=== PATIENT | male | born 1965 | race Caucasian/White ===

== ENCOUNTER 2017-07-01 17:55 | Emergency (ER) | payer OTHER ==
--- NOTE | 2017-07-01 18:08 | CPEKG ---
Heart Rate: 74 RR Interval: 811 P-R Interval: 144 QRSD Interval: 108 QT Interval: 412 QTC Interval: 457 P [place]: 75 QRS [place]: 52 T Wave [place]: 37 EKG Severity - BORDERLINE ECG - EKG Impression: SINUS RHYTHM Electronically Signed By: Iker Hand 01-Jul-2017 18:39:18
--- NOTE | 2017-07-01 18:10 | EDPHY ---
H & P Stated Complaint: cp x 10days Time Seen by Provider: 07/01/17 18:00 HPI/ROS: CHIEF COMPLAINT: Chest pain HISTORY OF PRESENT ILLNESS: The patient presents to the ED with a 10 day history of left-sided reproducible chest pain. The patient denies prior history of coronary artery disease. He states he has no exertional chest pain. It is worsened with positional changes and palpation. The patient does have a history of bipolar mood disorder. He is on Depakote for this condition. He does have a history of hyperlipidemia which is not treated. The patient denies any focal numbness or weakness. He denies any complaints of fever, cough or congestion. The patient states his symptoms are currently mild in nature. REVIEW OF SYSTEMS: A comprehensive 10 point review of systems is otherwise negative aside from elements mentioned in the history of present illness. Source: Patient Exam Limitations: No limitations - Personal History Current Tetanus/Diphtheria Vaccine: Yes Tetanus Vaccine Date: unsure - Medical/Surgical History Hx Asthma: No Hx Chronic Respiratory Disease: No Hx Diabetes: No Hx Cardiac Disease: No Hx Renal Disease: No Hx Cirrhosis: No Hx Alcoholism: No Hx HIV/AIDS: No Hx Splenectomy or Spleen Trauma: No Other PMH: PSHx: R knee 1998, jaw 1994,. PMHx: bipolar, back pain, high cholesterol - Social History Smoking Status: Never smoked - Physical Exam Exam: General Appearance: Alert, no distress Eyes: Pupils equal and round no pallor or injection ENT, Mouth: Mucous membranes moist Respiratory: Tenderness to palpation left anterior chest wall, no subcutaneous emphysema, no rash noted, lungs clear to auscultation bilaterally Cardiovascular: Regular rate and rhythm Gastrointestinal: Abdomen is soft and nontender, no masses, bowel sounds normal Neurological: A&O, normal motor function, normal sensory exam, normal cranial nerves Skin: Warm and dry, no rashes Musculoskeletal: Neck is supple nontender Extremities: symmetrical, full range of motion Constitutional: Initial Vital Signs Temperature (C) 36.3 C 07/01/17 17:58 Heart Rate 74 07/01/17 17:58 Respiratory Rate 18 07/01/17 17:58 Blood Pressure 152/93 H 07/01/17 17:58 O2 Sat (%) 99 07/01/17 17:58 O2 Delivery Mode Room Air Allergies/Adverse Reactions: haloperidol [From Haldol] Allergy (Unknown, Verified 07/01/17 17:58) RESTLESS haloperidol lactate [From Haldol] Allergy (Unknown, Verified 07/01/17 17:58) RESTLESS carbamazepine [From Tegretol] Allergy (Verified 07/01/17 17:58) tetracycline [Tetracycline] Allergy (Verified 07/01/17 17:58) Home Medications: Medication Instructions Recorded Depakote 16 Medical Decision Making - Diagnostics EKG Interpretation: EKG: Complete interpretation has been separately recorded in the [employer] archive. Summary impression: Sinus rhythm, mild ST segment depression noted throughout the inferior and precordial leads Imaging Results: Imaging Impressions Chest X-Ray 07/01/17 19:02 Impression: No source for chest pain identified. ED Course/Re-evaluation: The patient presents to the ED with a several week history of nonexertional left -sided chest pain which is reproducible in nature. The patient denies any pleuritic chest pain. He denies any history of fall or trauma. The patient has no acute fracture symptoms. The patient has some nonspecific changes on his EKG however a negative troponin. My clinical suspicion for acute coronary syndrome is quite low. I do feel that he can be discharged home with instructions to take Motrin as needed for pain. The patient will be referred to our on-call ac[employer]ical tile car[employer] supervisor for consideration of a treadmill stress test for any ongoing symptoms. The patient has been advised to return to the ED for markedly worsening symptoms or other concerns. I re-evaluated the patient at 8:15 p.m.. He is comfortable with the plan and disposition Differential Diagnosis: Differential diagnosis considered includes acute coronary syndrome, costochondritis, pneumothorax, myofascial strain - Data Points Laboratory Results: Laboratory Results 07/01/17 18:07 07/01/17 18:07 07/01/17 07/01/17 18:07 18:07 WBC 5.64 10^3/uL 10^3/uL (3.80-9.50) RBC 5.21 10^6/uL 10^6/uL (4.40-6.38) Hgb 16.6 g/dL g/dL (13.7-17.5) Hct 46.7 % % (40.0-51.0) MCV 89.6 fL fL (81.5-99.8) MCH 31.9 pg pg (27.9-34.1) MCHC 35.5 g/dL g/dL (32.4-36.7) RDW 12.7 % % (11.5-15.2) Plt Count 237 10^3/uL 10^3/uL (150-400) MPV 9.6 fL fL (8.7-11.7) Neut % (Auto) 53.4 % % (39.3-74.2) Lymph % (Auto) 35.6 % % (15.0-45.0) [place] % (Auto) 6.6 % % (4.5-13.0) Eos % (Auto) 3.0 % % (0.6-7.6) Baso % (Auto) 1.2 % % (0.3-1.7) Nucleat RBC Rel Count 0.0 % % (0.0-0.2) Absolute Neuts (auto) 3.01 10^3/uL 10^3/uL (1.70-6.50) Absolute Lymphs (auto) 2.01 10^3/uL 10^3/uL (1.00-3.00) Absolute Monos (auto) 0.37 10^3/uL 10^3/uL (0.30-0.80) Absolute Eos (auto) 0.17 10^3/uL 10^3/uL (0.03-0.40) Absolute Basos (auto) 0.07 10^3/uL 10^3/uL (0.02-0.10) Absolute Nucleated RBC 0.00 10^3/uL 10^3/uL (0-0.01) Immature Gran % 0.2 % % (0.0-1.1) Immature Gran # 0.01 10^3/uL 10^3/uL (0.00-0.10) Sodium 143 mEq/L mEq/L (134-144) Potassium 4.0 mEq/L mEq/L (3.5-5.2) Chloride 100 mEq/L mEq/L (97-110) Carbon Dioxide 32 mEq/l H mEq/l (22-31) Anion Gap 11 mEq/L mEq/L (8-16) BUN 12 mg/dL mg/dL (7-23) Creatinine 0.8 mg/dL mg/dL (0.7-1.3) Estimated GFR > 60 Glucose 120 mg/dL H mg/dL (70-100) Calcium 9.8 mg/dL mg/dL (8.5-10.4) Troponin I < 0.012 ng/mL ng/mL (0.000-0.034) Departure - Departure Disposition: Home, Routine, Self-Care Clinical Impression: Chest pain Condition: Good Instructions: Chest Pain (ED), Chest Wall Pain (ED) Additional Instructions: 1. Based upon the testing done in the Emergency Department today we see no evidence of a heart attack. 2. We are unable to fully exclude coronary artery disease based upon the testing available in the Emergency Department. 3. For this reason, we would like you to be seen by cardiology for consideration of additional testing within the next 3 days. 4. Please contact the acoustical tile carpenters supervisor you have been referred to schedule this appointment as soon as possible. Their offices are typically open from 8:30am- 5pm M-F. 5. Please return to the Emergency Department immediately for any recurrent chest pain, difficulty breathing or other concerns. 6. Take Ibuprofen or Motrin 600 mg by mouth three times a day. Referrals: Shi Cardona MD [Primary Care Provider] - As per Instructions Cipriano De La Rosa MD [Medical Doctor] - As per Instructions
[2017-07-01 18:25] LABS: % IMMATURE GRANULYOCYTES 0.2 % (0.0-1.1); ABSOLUTE IMMATURE GRANULOCYTES 0.01 10^3/uL (0.00-0.10); ADD DIFF? NO; ADD MORPH? NO; ADD SCAN? NO; ATYPICAL LYMPHOCYTE FLAG 0 (0-99); FRAGMENT RBC FLAG 0 (0-99); HEMATOCRIT 46.7 % (40.0-51.0); HEMOGLOBIN 16.6 g/dL (13.7-17.5); LEFT SHIFT FLG 0 (0-99); LIPEMIA HEMOLYSIS FLAG 90 (0-99); MEAN CELL HEMOGLOBIN 31.9 pg (27.9-34.1); MEAN CELL HEMOGLOBIN CONCENTR. 35.5 g/dL (32.4-36.7); MEAN CELL VOLUME 89.6 fL (81.5-99.8); MEAN PLATELET VOLUME 9.6 fL (8.7-11.7); PLATELET CLUMPS FLAG 0 (0-99); PLATELET COUNT 237 10^3/uL (150-400); RED BLOOD CELL COUNT 5.21 10^6/uL (4.40-6.38); RED CELL DISTRIBUTION WIDTH 12.7 % (11.5-15.2)
[2017-07-01 18:34] LABS: ANION GAP 11 mEq/L (8-16); CALCIUM 9.8 mg/dL (8.5-10.4); CARBON DIOXIDE 32 mEq/l (22-31); CHLORIDE 100 mEq/L (97-110); CREATININE 0.8 mg/dL (0.7-1.3); GLOMERULAR FILTRATION RATE > 60; GLUCOSE 120 mg/dL (70-100); SODIUM 143 mEq/L (134-144)
[2017-07-01 18:46] LABS: TROPONIN I < 0.012 ng/mL (0.000-0.034)
[2017-07-01 20:19] VITALS: PULSE 80
[2017-07-01 20:43] VITALS: BP 158/98; RESP 16; TEMP 99.3; O2SAT 97
== END 2017-07-01 20:42 | disposition home or self-care (01) ==
DX: R07.9 Chest pain, unspecified (principal)

== ENCOUNTER → 2017-08-28 | Outpatient (CLI) | payer OTHER | LOC: BHFA 13:00 | PROVIDERS: ATTEND Internal Medicine Cardiovascular Disease | DX: R07.9 Chest pain, unspecified (principal) ==

== ENCOUNTER → 2017-11-07 | Outpatient (CLI) | payer OTHER ==
[~2017-11-07] MED LIST: GADOBUTROL 10 ML VIAL IVP ONE
== END ==
LOC: FIMAGING 06:51
PROVIDERS: ATTEND Psychiatry & Neurology Neurology
DX: M26.69 Other specified disorders of temporomandibular joint (principal)
CPT/HCPCS: 70553; A9585